=== PATIENT | female | born 1970 | race Caucasian/White ===

== ENCOUNTER → 2021-03-08 15:34 | Outpatient (CLI) | payer OTHER, SELFPAY ==
[2021-03-08 16:08] LABS: COVID19 -Nasal RAPID POSITIVE (Negative)
== END ==
PROVIDERS: Referring Provider Physician Assistant; Visit Provider Physician Assistant
DX: Z20.822 Contact with and (suspected) exposure to COVID-19 (principal); U07.1 COVID-19
CPT/HCPCS: 87635